=== PATIENT | female | born 1990 | race Caucasian/White ===

== ENCOUNTER 2016-12-14 02:26 | Emergency (ER) | payer SELFPAY ==
[2016-12-14 02:37] VITALS: BP 118/76
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
== END 2016-12-14 03:26 | disposition home or self-care (01) ==
LOC: JP.ED 02:26
DX: Z77.21 Contact with and (suspected) exposure to potentially hazardous body fluids (principal); F17.210 Nicotine dependence, cigarettes, uncomplicated; Z79.899 Other long term (current) drug therapy; Z88.1 Allergy status to other antibiotic agents
CPT/HCPCS: 36415; 86706; 86803; 87340; 87449; 99282; 99284